=== PATIENT | female | born 1985 | race Caucasian/White ===

== ENCOUNTER 2017-04-17 08:44 | Inpatient (IN) ==
[2017-04-17] MEDS ORDERED: LR 1,000 ML ONE (21:05)
[2017-04-17] MEDS ORDERED: ZOFRAN IV PRN (21:28)
[2017-04-17] MEDS ORDERED: BRETHINE SUBQ PRN (21:28)
[2017-04-17] MEDS ORDERED: PEPCID PO PRN (21:28)
[2017-04-17] MEDS ORDERED: PEPCID IV PRN (21:28)
[2017-04-17] MEDS ORDERED: LR 1,000 ML IV ONE (21:28)
[2017-04-17] MEDS ORDERED: AMBIEN PO PRN (21:28)
[2017-04-17] MEDS ORDERED: TYLENOL PO PRN (21:28)
[2017-04-17] MEDS ORDERED: PITOCIN 30 UNITS/LR 30 UNITS/500 ML IV.SOLN IV SCH (21:28)
[2017-04-17] MEDS ORDERED: STADOL IV PRN ×3 (21:28)
[2017-04-17] MEDS ORDERED: CLINDAMYCIN 900 MG/NS 900 MG/50 ML IVPB IV PRN (21:29)
[2017-04-17] MEDS ORDERED: CYTOTEC PO ONE (23:00)
[2017-04-17 23:17] LABS: MANUAL DIFF NEEDED? NO
[2017-04-17 23:23] LABS: BASO% 0.1 % (0.0-0.8); EOS# 0.06 X1000 (0.0-0.7); EOS% 0.7 % (0.0-10.0); HEMATOCRIT 32.3 % (37.0-47.0); HEMOGLOBIN 10.7 g/dL (12.0-16.0); IMM GRAN# 0.02 X1000 (0.0-0.04); IMM GRAN% 0.2 % (0.0-0.5); LYMPH# 2.17 X1000 (1.2-3.4); LYMPH% 26.7 % (20.5-51.1); MCH 28.1 PG (27-31); MCHC 33.1 g/dL (33-37); MCV 84.8 FL (81-99); MONO# 0.58 X1000 (0.11-0.59); MONO% 7.1 % (1.7-9.3); MPV 11.7 FL (7.4-10.4); NEUT% 65.2 % (42.2-75.2); PLT 187 X1000 (130-400); RBC 3.81 XMIL (4.2-5.4)
[2017-04-18 02:37] LABS: URINE SOURCE VOIDED
[2017-04-18 02:47] LABS: BILIRUBIN URINE NEGATIVE (NEGATIVE); BLOOD URINE NEGATIVE (NEGATIVE); CLARITY SL. CLOUDY (CLEAR); COLOR YELLOW; GLUCOSE URINE NEGATIVE (NEGATIVE); LEUKOCYTES URINE NEGATIVE (NEGATIVE); NITRITE URINE NEGATIVE (NEGATIVE); PROTEIN URINE NEGATIVE (NEGATIVE); SP GRAVITY URINE 1.015; UROBILINOGEN URINE NORMAL
[2017-04-18 02:51] LABS: UR AMPHETAMINES QUAL NONE DETECTED (NONE DETECT); UR BARBITUATES QUAL NONE DETECTED (NONE DETECT); UR BENZODIAZEPIN QUAL NONE DETECTED (NONE DETECT); UR CANNABINOIDS QUAL PRESUMPTIVE POSITIVE (NONE DETECT); UR COCAINE QUAL NONE DETECTED (NONE DETECT); UR MDMA QUAL NONE DETECTED (NONE DETECT); UR METHADONE QUAL NONE DETECTED (NONE DETECT); UR METHAMPHETAMINE QUAL NONE DETECTED (NONE DETECT); UR OPIATES QUAL NONE DETECTED (NONE DETECT); UR OXYCODONE QUAL NONE DETECTED (NONE DETECT); UR PCP QUAL NONE DETECTED (NONE DETECT); UR TCA QUAL NONE DETECTED (NONE DETECT)
[2017-04-18] MEDS ORDERED: CYTOTEC PO SCH (03:00)
[2017-04-18] MEDS ORDERED: MINERAL OIL TOP ONE (07:18)
[2017-04-18] MEDS ORDERED: XYLOCAINE-MPF 1% INJ ONE (07:19)
[2017-04-18] MEDS ORDERED: BOOSTRIX VACCINE IM ONE (08:20)
[2017-04-18] MEDS ORDERED: PITOCIN IM PRN (08:20)
[2017-04-18] MEDS ORDERED: HYDROXYZINE PO PRN (08:20)
[2017-04-18] MEDS ORDERED: M-M-R II VACCINE SUBQ ONE (08:20)
[2017-04-18] MEDS ORDERED: HYDROXYZINE IM PRN (08:20)
[2017-04-18] MEDS ORDERED: XYLOCAINE-MPF 1% INJ PRN (08:20)
[2017-04-18] MEDS ORDERED: PITOCIN 20 UNITS/LR 20 UNITS/1,000 ML IV.SOLN IV SCH (08:20)
[2017-04-18] MEDS ORDERED: AMBIEN PO PRN (08:20)
[2017-04-18] MEDS ORDERED: BENADRYL PO PRN (08:20)
[2017-04-18] MEDS ORDERED: BENADRYL IV PRN (08:20)
[2017-04-18] MEDS ORDERED: CYTOTEC PO PRN (08:20)
[2017-04-18] MEDS ORDERED: PITOCIN 30 UNITS/LR 30 UNITS/500 ML IV.SOLN IV ONE (08:20)
[2017-04-18] MEDS ORDERED: PERCOCET-10 PO PRN (08:20)
[2017-04-18] MEDS ORDERED: PERI MEDS (DERMOPLAST/NUPERCAINAL/TUCKS) MISC PRN (08:20)
[2017-04-18] MEDS ORDERED: MINERAL OIL PO PRN (08:20)
[2017-04-18] MEDS ORDERED: PERCOCET-5 PO PRN (08:20)
[2017-04-18] MEDS: MOTRIN PO PRN (12:03)
[2017-04-18] MEDS: NORCO-5 PO PRN (12:03)
--- NOTE | 2017-04-18 13:40 | OPERATIVE NOTE ---
PROCEDURE DATE: 04/18/2017 DELIVERING PHYSICIAN: Garland Torres MD. TYPE OF DELIVERY: Spontaneous controlled vaginal delivery. ANESTHESIA: IV sedation. FINDINGS: At 0743, a 6 pound 13 ounce male infant was delivered in occiput anterior presentation. There was a loose nuchal cord x1. Apgars were 8 at one minute and 10 at five minutes. SUMMARY: Liseth Herrera is a 31-year-old, 3, para 2-0-0-2, who is at term gestation. Her blood type is A positive. Rubella equivocal. Hepatitis B surface antigen, HIV, and group B strep are negative. The patient has had an uncomplicated . She presented to labor and delivery last evening to began Cytotec induction of labor. This morning, she was examined and found to be 8-9 cm dilated. Membranes ruptured, revealing clear fluid. Shortly after that, she became complete. She was placed in the dorsal lithotomy position. The perineum was prepped and draped in the usual fashion. Spontaneous controlled vaginal delivery occurred. Once the 's head was delivered, the shoulders and the body delivered without complications. The nuchal cord was reduced. The oropharynx was bulb suctioned. The cord was clamped and cut. The was handed to the nurses for further care and evaluation. Cord blood was obtained. Placenta was spontaneously delivered and it was intact. There were no cervical or vaginal lacerations. Blood loss was estimated at 150 mL. Patient remained in the LDR recovering without difficulty. cc: Garland Torres MD
[2017-04-18] MEDS: PRECARE PO SCH (17:06)
[2017-04-18] MEDS: NORCO-10 PO PRN (17:10)
[2017-04-18] MEDS: PERICOLACE PO SCH (20:26)
[2017-04-19] MEDS: MOTRIN PO PRN ×3 (01:05→17:44)
[2017-04-19] MEDS: NORCO-10 PO PRN ×4 (01:05→23:15)
[2017-04-19 06:50] LABS: HEMATOCRIT 27.6 % (37.0-47.0); HEMOGLOBIN 8.9 g/dL (12.0-16.0); MCH 27.8 PG (27-31); MCHC 32.2 g/dL (33-37); MCV 86.3 FL (81-99); MPV 11.5 FL (7.4-10.4); RBC 3.2 XMIL (4.2-5.4)
[2017-04-19] MEDS: PRECARE PO SCH (08:56)
[2017-04-19] MEDS: PERICOLACE PO SCH (21:23)
[2017-04-20] MEDS: PRECARE PO SCH (08:43)
[2017-04-20] MEDS: MOTRIN PO PRN (08:43)
[2017-04-20] MEDS: NORCO-5 PO PRN (08:43)
[2017-04-20] MEDS: NORCO-10 PO PRN (12:14)
--- NOTE | 2017-04-21 13:26 | DISCHARGE SUMMARY ---
ADMISSION DATE: 04/17/2017 DISCHARGE DATE: 04/20/2017 ADMITTING DIAGNOSES: 1. Term for labor induction. 2. Term , delivered. CONDITION: Stable. DIET: As tolerated. ACTIVITY: Routine . MEDICATIONS: 1. Uona-ajy-lbvelob nonsteroidals. 2. Narcotic pain medicine 5 mg. 3. She is to continue vitamins with iron and use [id number] stool softeners. HISTORY: Please refer to Ms. Herrera's records and delivery note. She presented for labor induction. She had a successful labored induction with the resulted of a vaginal delivery. She has done well and now was day 2, desiring discharge. PHYSICAL EXAMINATION: Vital Signs: Stable. She is afebrile. She is alert and cooperative, in no distress. Neck: Supple. Lungs: Clear. Heart: Regular sinus rhythm. Abdomen: Distended. Extremities: No cyanosis, clubbing or edema in her extremities. LABS: Hemoglobin 8.9. We will discharge with above instructions. cc: MD Garland Haile MD
== END 2017-04-20 16:40 | disposition home or self-care (01) ==
LOC: P.LD 19:10 → P.WC 04-18 10:59
PROVIDERS: ADMIT Obstetrics & Gynecology; ATTEND Obstetrics & Gynecology